=== PATIENT | male | born 1960 | race Two or more races ===

== ENCOUNTER 2018-09-25 08:36 | Day surgery (SDC) | payer OTHER ==
[~2018-09-25] VITALS: Ht 188 cm; Wt 122.5 kg
[2018-09-25] VITALS (7 sets, daily range): BP systolic 133–142; BP diastolic 81–86
[~2018-09-25 08:36] MED LIST: LR 1000ml 1,000 ML IVLG SCH
[2018-09-25] MEDS ORDERED: LR 1000ml ONE (10:00)
[2018-09-25] MEDS ORDERED: Lidocaine 1% MPF 10mg/ml 5ml ONE (10:00)
[2018-09-25] MEDS ORDERED: Propofol 200mg/20ml IV ONE (10:00)
--- NOTE | 2018-09-25 10:00 | Short Stay Surgery H&P ---
History of Present Illness History of Present Illness Chief Complaint Abdominal pains and GERDs HPI Nathanael Cobb is a 58 year old male who was admitted on for GERD Patient History Allergies: Coded Allergies: No Known Allergies (Unverified , 09/24/18) PAST MEDICAL HISTORY: (1) H/O shoulder surgery (2) History of hip surgery (3) H/O lumbar discectomy Review of Systems Cardiovascular: Reports: no symptoms Respiratory: Reports: no symptoms Skeletal: Reports: spinal disc disease Gastrointestinal: Reports: gastro esophageal reflux disease Genitourinary: Reports: no symptoms Neurologic: Reports: no symptoms Endocrine: Reports: no symptoms Hematologic: Reports: no symptoms Physical Exam Skin: normal HENT: normal Heart: normal Lungs: normal Abdomen: abnormal Extremities: normal Genitourinary: normal Plan Plan of Care Upper GI endoscopy and biopsy Preop Interventions None Summary of Findings See the reports Attestation Are the patient's medical conditions optimized for surgery? Attestation Response: yes Mukesh Higgins MD Sep 25, 2018 10:00
--- NOTE | 2018-09-25 10:01 | Pre-Procedure Note/Attestation ---
Pre-Procedure Note/Attestation Complete Prior to Procedure Planned Procedure: left Procedure Narrative: Examination of the upper GI tract via Endocopy Indications for Procedure Pre-Operative Diagnosis: R/O Gastritis/Peptic Ulcer Attestation I attest that I discussed the nature of the procedure; its benefits; risks and complications; and alternatives (and the risks and benefits of such alternatives ), prior to the procedure, with the patient (or the patient's legal manufacturers representative). I attest that, if there was a reasonable possibility of needing a blood transfusion, the patient (or the patient's legal manufacturers representative) was given the [facility] standardized written summary, pursuant to the [place] Blood Safety Act ([place] Health and Safety Code # 1645, as amended). I attest that I re-evaluated the patient just prior to the surgery and that there has been no change in the patient's H&P, except as documented below: Mukesh Higgins MD Sep 25, 2018 10:01
--- NOTE | 2018-09-25 10:35 | Endoscopy Procedure Note ---
Endoscopy Procedure Note General Indication for Procedure: Abdominal pains/Epigastric pain/heartburn Procedures Performed: EGD - Mild gastritis, biopsy obtained from gastric body; otherwise normal upper GI. endoscopy. Specimen: yes Pt Tolerated Procedure Well: Yes Estimated Blood Loss: none Anesthesia Anesthesiologist: Dr. dowd Anesthesia: moderate sedation Medications Medication Given: see anesthesia record Inserted Devices Implant(s) used?: No Quality Quality of Bowel Preparation: Excellent Was there any complications?: No GI Core Measures 50 yrs or older w/o bx or poly: Not Applicable 10yrs. F/U not recommended: Not Applicable If not recommended, why?: Med reason:<3 yrs.: System Reason:<3 yrs.: Mukesh Higgins MD Sep 25, 2018 10:35
--- NOTE | 2018-09-25 10:36 | Discharge Instructions ---
Discharge Instructions Discharge Instructions Follow up with: See the doctor in office after 2 weeks. For Congestive Heart Failure Reminder Report to your physician any weight gain of 5 pounds or more in one week. Mukesh Higgins MD Sep 25, 2018 10:36
--- NOTE | 2018-09-25 10:54 | Anethesia Preoperative Eval ---
Anesthesia Pre-op PMH/ROS General Date of Evaluation: Sep 25, 2018 Time of Evaluation: 10:05 Anesthesiologist: dolly ASA Score: ASA 2 Mallampati Score Class I : Soft palate, uvula, fauces, pillars visible Class II: Soft palate, uvula, fauces visible Class III: Soft palate, base of uvula visible Class IV: Only hard plate visible Mallampati Classification: Class II Surgeon: jaleel Diagnosis: gerd, abdominal pain Surgical Procedure: egd w/bx Anesthesia History: none Family History: no anesthesia problems Allergies: Coded Allergies: PENICILLINS (Verified Allergy, Intermediate, "cant breath", 09/25/18) AMPICILLIN (Verified Allergy, Unknown, unable to breath, 09/25/18) SULFA (SULFONAMIDE ANTIBIOTICS) (Verified Adverse Reaction, Unknown, "can' t breath", 09/25/18) Medications: see eMAR Patient NPO?: Yes Past Medical History Gastrointestinal/Genitourinary: Reports: GERD, other - kidney stone HEENT: Reports: other - sinusitis Musculoskeletal/Integumentary: Reports: OA Anesthesia Pre-op Phys. Exam Physician Exam Last Vital Signs Date Time Temp Pulse Resp B/P (MAP) Pulse Ox O2 Delivery O2 Flow Rate FiO2 09/25/18 10:17 Room Air 09/25/18 10:07 97.9 62 20 133/81 98 Constitutional: NAD Neurologic: CN 2-12 intact Cardiovascular: RRR Respiratory: CTA Gastrointestinal: S/NT/ND Airway Exam Mallampati Score: Class II MO: full Neck: flexible TMD: 2fb ROM: full Dentures: lower Anesthesia Pre-op A/P Risk Assessment & Plan Assessment: asa2 Plan: mac Status Change Before Surgery: No Pre-Antibiotics Drug: Monalisa Purvis MD Sep 25, 2018 10:54
--- NOTE | 2018-09-25 10:56 | Immediate Post-Op Evaluation ---
Immediate Post-Op Evalulation Immediate Post-Op Evalulation Procedure: egd w/bx Date of Evaluation: Sep 25, 2018 Time of Evaluation: 10:55 IV Fluids: 150ml lr Blood Products: none Estimated Blood Loss: negligible Blood Pressure Systolic: 135 Blood Pressure Diastolic: 85 Pulse Rate: 58 Respiratory Rate: 18 O2 Sat by Pulse Oximetry: 99 Temperature (Fahrenheit): 98.1 Pain Score (1-10): 0 Nausea: No Vomiting: No Complications none Patient Status: awake, reacts, patent Hydration Status: adequate Drug: Monalisa Purvis MD Sep 25, 2018 10:56
[2018-09-25] MEDS ORDERED: LR 1000ml 1,000 ML IVLG SCH (10:57)
--- NOTE | 2018-09-25 10:57 | 48 Hour Post Anesthesia Eval ---
Post Anesthesia Evaluation Procedure: egd w/bx Date of Evaluation: Sep 25, 2018 Time of Evaluation: 10:57 Blood Pressure Systolic: 133 0: 85 Pulse Rate: 60 Respiratory Rate: 18 Temperature (Fahrenheit): 98.2 O2 Sat by Pulse Oximetry: 99 Airway: patent Nausea: No Vomiting: No Pain Intensity: 0 Hydration Status: adequate Cardiopulmonary Status: stable Mental Status/LOC: patient returned to baseline Post-Anesthesia Complications: none Follow-up care needed: N/A Monalisa Jacques MD Sep 25, 2018 10:57
[2018-09-25] MEDS ORDERED: Midazolam 2mg/2ml Inj IVP PRN (11:00)
[2018-09-25] MEDS ORDERED: Atropine Inj 1mg/10ml Syr IV PRN (11:00)
[2018-09-25] MEDS ORDERED: fentaNYL 100 mcg/2 mL IV PRN (11:00)
[2018-09-25] MEDS ORDERED: DiphenhydrAMINE 50mg/ml Inj IVP PRN (11:00)
--- NOTE | 2018-09-25 20:45 | Operative Note - Dictated ---
DATE OF OPERATION: 09/25/2018 SURGEON: Mukesh Higgins M.D. PROCEDURE: Esophagogastroduodenoscopy with biopsy. PREOPERATIVE DIAGNOSIS: Abdominal pain and gastroesophageal reflux, rule out NSAID-induced gastropathy. POSTOPERATIVE DIAGNOSIS: Evidence of mild gastritis, otherwise normal upper GI endoscopy. Biopsy was taken per random from gastric body. MEDICATION USED: Per Dr. Gustafson, anesthesiologist. INSTRUMENT: GIF Olympus upper GI video endoscope. DESCRIPTION OF PROCEDURE: The patient after arriving in endoscopy unit, was told about risks and benefits of the procedure, which he accepted and signed informed consent. At this time, he was put in the left lateral decubitus position. After adequate IV sedation, the scope was gently passed through the cricopharyngeal area, was lodged into the upper esophagus, and gradually advanced towards gastroesophageal junction. The entire length of the esophagus looked normal and no evidence of any abnormality noted. No stricture, ulcers, etc. GE junction also looked normal without hiatal hernia or Jiang's. At this time, the scope was advanced into the stomach, gastric cavity was distended with insufflation of air and gradually the areas of the fundus and the body and the antrum were examined, which revealed evidence of minimal inflammatory process in the body of the stomach, but there was no ulcers, tumors, polyps, bleeding, etc. At this time, one biopsy from this area of the mid body of the stomach over the greater curvature was obtained and subsequently, the scope was passed through the antrum. First and second portion of duodenum were found to be completely normal. Finally, the scope was pulled out and the procedure was terminated. The patient tolerated the procedure well and left the endoscopy room in a good condition. Mukesh Higgins M.D. DR: LONDON JOB#: [id number] CC:
--- NOTE | 2018-09-25 21:30 | Pre-op HX & Phy Repo 2 SIG ---
DATE OF ADMISSION: 09/25/2018 HISTORY OF PRESENT ILLNESS: The applicant is a 58-year-old gentleman who is being seen prior to undergoing the procedure for upper GI endoscopy for which he has been scheduled to receive for evaluation of his gastrointestinal conditions and symptoms that he has been experiencing subsequent to his work injury. The patient is a 58-year-old gentleman who was working as a business economist for [employer]. He reports to me that during this process, he was injured at job site and he was prescribed multiple medications including nonsteroidal antiinflammatory agents such as ibuprofen, Motrin, naproxen, etc. He reports to me that subsequently he was started on these medications and started to experience symptoms of abdominal pain and heartburn for which he was prescribed omeprazole. However, he could not tolerate that. Basically, the applicant had been taking nonsteroidal antiinflammatory agents going back to 2012. He denied having had any hematemesis, melena, or hematochezia; however, but he does have symptoms of mild regurgitation and heartburn as I mentioned. He reports that he does not have dysphagia, odynophagia, etc. He never had any gastrointestinal condition before being injured at job site and being started on medications as he is currently taking meloxicam. After being injured at job site, he also started to have pains over his neck and shoulders, elbows, wrist, right knee, and right shoulder as well. He also has had surgeries for this condition as we will discuss later. PAST MEDICAL HISTORY: Basically nonsignificant. He has had history of carpal tunnel and arthritis, but does not have any history of hypertension, diabetes, hyperlipidemia, etc. SURGERIES: He has undergone surgery for left shoulder as well as right shoulder and total hip replacement along with lumbar epidural steroid injections. ALLERGIES: To penicillin and sulfa. CURRENT MEDICATIONS: Meloxicam. FAMILY HISTORY: Nonsignificant. HABITS: The applicant denies drinking alcohol or smoking cigarettes. REVIEW OF SYSTEMS: Basically history of present illness. PHYSICAL EXAMINATION: GENERAL: Reveals alert and oriented gentleman. Does not seem to be in any acute distress. He looks well developed and nourished and overweight. HEENT: Normocephalic. Pupils equal in size and reactive to light and accommodation. No visible jaundice. Buccal cavity - tongue midline, well hydrated. No ulcers. NECK: Supple. No JVD, thyromegaly, or adenopathy. CHEST: Clear to auscultation and percussion. No rales or rhonchi. HEART: S1, S2 normal. Regular rhythm. No gallops or murmur. ABDOMEN: Soft, but obese. There is minimal tenderness over the upper part of the abdomen, but no hepatosplenomegaly noted. Bowel sounds are present. No percussion tenderness. EXTREMITIES: Nonsignificant. NEUROLOGIC: Nonsignificant. INITIAL PREOPERATIVE IMPRESSION: 1. Abdominal pain of uncertain etiology, rule out NSAID-induced gastropathy, peptic ulcer disease, duodenal ulcer. 2. History of gastroesophageal reflux, possibly secondary to side effects of NSAID medications. 3. Possible underlying irritable bowel syndrome. RECOMMENDATION: The applicant seems to be stable at this time to undergo the procedure of upper GI endoscopy for which he has been scheduled. He understands the risks and benefits and signed the consent. Said Santino Higgins DR: MARTIN JOB#: [id number] CC:
== END 2018-09-25 11:50 | disposition home or self-care (01) ==
LOC: GAS 08:36
DX: K29.50 Unspecified chronic gastritis without bleeding (principal); K21.9 Gastro-esophageal reflux disease without esophagitis; M19.90 Unspecified osteoarthritis, unspecified site; G56.00 Carpal tunnel syndrome, unspecified upper limb; Z96.649 Presence of unspecified artificial hip joint; Z87.442 Personal history of urinary calculi; Z88.0 Allergy status to penicillin; Z88.2 Allergy status to sulfonamides
CPT/HCPCS: 43239; J2704; 94003; 94150